=== PATIENT | male | born 1965 ===

== ENCOUNTER 2022-10-09 04:07 | Day surgery (SDC) | payer BC, OTHER ==
[2022-10-03 12:58] VITALS: BMI 26.6
[2022-10-09] MEDS ORDERED: MIDAZOLAM HCL 2 MG/2 ML SINGLE DOSE VIAL ONE (09:21)
[2022-10-09] MEDS ORDERED: ceFAZolin SODIUM 1 GM VIAL IVPB ONE (10:20)
[2022-10-09] MEDS ORDERED: ELECTROLYTE-148 SOLN 1,000 ML IV SCH (10:45)
[2022-10-09 10:57] VITALS: PULSE 59; RESP 18
[2022-10-09 12:32] VITALS: BP 113/72; TEMP 97.9
== END 2022-10-09 11:45 | disposition home or self-care (01) ==
LOC: JASU-SURG 04:07 → EDSEX 10:00 → JASU-SURG 11:45
PROVIDERS: ATTEND Urology
PROC: 0TF4XZZ Fragmentation in Left Kidney Pelvis, External Approach (ICD-10-PCS; principal; 2022-10-09 10:00)
DX: N20.0 Calculus of kidney (principal)